=== PATIENT | male | born 2000 | race Asian ===

== ENCOUNTER → 2024-12-24 10:39 | Outpatient (REF) | payer OTHER, SELFPAY ==
[2024-12-24 18:48] LABS: Hepatitis B Surface Antibody Negative
[2024-12-26 13:10] LABS: Quantiferon TB Gold Plus Negative (Negative)
== END ==
LOC: OHS 10:39
PROVIDERS: ATTENDING PHYSICIAN Nurse Practitioner Family
DX: Z23 Encounter for immunization (principal)
CPT/HCPCS: 36415; 86480; 86706